=== PATIENT | female | born 1960 | race Caucasian/White ===

== ENCOUNTER 2021-05-10 13:50 | Inpatient (IN) | payer MEDICAID ==
[~2021-05-10] VITALS: Ht 165.1 cm; Wt 67.0 kg
--- NOTE | 2021-05-10 14:43 | NUR ---
Spoke to Dr. Hylton regarding patients hypotension. Dr. Hylton stated to place verbal order for 1L NS bolus once now. Dr. Hylton aware that ACS protocol has been initiated for patient. No further orders at this time.
[2021-05-10] MEDS ORDERED: normal saline 1000ml 1,000 ML IVB ONE ×2 (14:45→15:05)
[2021-05-10 14:47] LABS: BASOPHILS % (AUTO) 0.1 % (0-1); EOSINOPHILS # (AUTO) 0.1 X10'3 (0-0.9); EOSINOPHILS % (AUTO) 0.4 % (0-6); HEMATOCRIT 33.2 % (35.0-45.0); HEMOGLOBIN 11.3 g/dl (12.0-16.0); LYMPHOCYTES % (AUTO) 4.7 % (21-51); MEAN CORPUSCULAR HEMOGLOBIN 31.9 PG (27.0-31.0); MEAN CORPUSCULAR VOLUME 93.7 FL (78-98); MEAN PLATELET VOLUME 7.8 FL (7.4-10.4); MONOCYTES # (AUTO) 1.7 X10'3 (0-0.9); NEUTROPHILS # (AUTO) 18.4 X10'3 (1.8-7.7); NEUTROPHILS % (AUTO) 86.8 % (42-75); PLATELET COUNT 276 X10'3 (140-440); RED BLOOD COUNT 3.55 X10'6 (4.20-5.60); RED CELL DISTRIBUTION WIDTH 13.9 % (11.5-14.5); WHITE BLOOD COUNT 21.1 X10'3 (4.5-11.0)
[2021-05-10 15:10] LABS: ALANINE AMINOTRANSFERASE 13 U/L (12-78); ALBUMIN 3.5 G/DL (3.4-5.0); ALBUMIN/GLOBULIN RATIO 1.1 (1.1-1.5); ALKALINE PHOSPHATASE 77 IU/L (46-116); ANION GAP 9 (8-16); ASPARTATE AMINO TRANSFERASE 16 U/L (10-37); BILIRUBIN,TOTAL 0.6 MG/DL (0.1-1.0); BLOOD UREA NITROGEN 12 MG/DL (7-18); BUN/CREATININE RATIO 8.6 (6.6-38.0); CALCIUM 8.7 MG/DL (8.5-10.1); CHLORIDE 97 MMOL/L (99-107); CREATININE 1.39 MG/DL (0.40-0.90); GLUCOSE 123 MG/DL (70-104); POTASSIUM 3.9 MMOL/L (3.5-5.1); SODIUM 131 MMOL/L (135-145); TOTAL CARBON DIOXIDE 24.8 MMOL/L (24-32); TOTAL PROTEIN 6.7 G/DL (6.4-8.2); eGFR 39 ML/MIN
[2021-05-10] MEDS ORDERED: vancomycin/NS 1 GM ADD-VANTAGE 250 ML IV ONE (15:20)
[2021-05-10] MEDS ORDERED: acetaminophen 325mg tablet PO ONE (15:35)
--- NOTE | 2021-05-10 15:40 | NUR ---
Pt ambulated 50 feet unassisted and then stopped abruptly and stated she needed to sit down. Pt was escorted to bathroom in wheelchair. Pt was steady on feet and able to use restroom safely without any assistance.
[2021-05-10 15:54] LABS: PLATELET ESTIMATE NORMAL; TOTAL CELLS COUNTED 100; TOXIC GRANULATION 1+
[2021-05-10 16:09] LABS: CLARITY,URINE SLIGHTLY CLOUDY (Clear); COLOR,URINE YELLOW (Yellow); GLUCOSE, URINE NEGATIVE (Neg); KETONES,URINE NEGATIVE (Neg); LEUKOCYTE ESTERASE ,URINE TRACE (Neg); NITRITES, URINE NEGATIVE (Neg); OCCULT BLOOD,URINE NEGATIVE (Neg); PH,URINE 6.5 (4.8-8.0); PROTEIN,URINE NEGATIVE (Neg)
[2021-05-10 16:14] LABS: UA COLLECTION TYPE CLN CATCH MIDSTREAM
[2021-05-10 16:15] LABS: RBC,URINE 0-2 /HPF (0-2)
[2021-05-10 16:16] LABS: BACTERIA,URINE FEW /HPF (Neg); MUCUS STRANDS FEW /LPF (Neg); SQUAMOUS EPITHELIAL CELL,UR MODERATE /LPF (FEW)
[2021-05-10 16:25] LABS: URINE AMPHETAMINE SCREEN NEGATIVE (Neg); URINE BARBITUATE SCREEN NEGATIVE (Neg); URINE BENZODIAZEPINES SCREEN NEGATIVE (Neg); URINE CANNABINOID SCREEN NEGATIVE (Neg); URINE COCAINE SCREEN NEGATIVE (Neg); URINE METHADONE SCREEN NEGATIVE (Neg); URINE OPIATE SCREEN NEGATIVE (Neg); URINE PHENCYCLIDINE SCREEN NEGATIVE (Neg)
--- NOTE | 2021-05-10 16:54 | NUR ---
escorted to bathroom, taken back to bed, connected to monitor.
[2021-05-10] MEDS ORDERED: morphine 4 MG/ML inj SYRINge IV ONE (19:10)
[2021-05-10] MEDS ORDERED: ondansetron/PF 4mg/2ml inj IV ONE (19:10)
--- NOTE | 2021-05-10 19:13 | NUR ---
Hospitalist at bedside assessing pt. Warner notified about pt requesting pain medication and confirmed that new orders will be put in.
[2021-05-10] MEDS ORDERED: potassium CL 10mEq/100ml bag 100 ML IV PRN (19:20)
[2021-05-10] MEDS ORDERED: magnesium Cl slow-release 64mg tablet PO PRN (19:20)
[2021-05-10] MEDS ORDERED: magnesium 4gm in 100ml NS 100 ML IV PRN (19:20)
[2021-05-10] MEDS ORDERED: magnesium 2GM in 50ml NS 50 ML IV PRN (19:20)
[2021-05-10] MEDS ORDERED: magnesium hydroxide 30ml (MOM) UD suspension PO PRN (19:20)
[2021-05-10] MEDS ORDERED: mag hydrox/Alum hydrox/simeth 30ml oral suspension PO PRN (19:20)
[2021-05-10] MEDS ORDERED: acetaminophen 325mg tablet PO PRN (19:20)
[2021-05-10] MEDS ORDERED: potassium Cl 20 mEq SR tablet PO PRN ×2 (19:20)
[2021-05-10] MEDS ORDERED: morphine 2 MG/ML inj. syringe IV PRN ×2 (19:20)
[2021-05-10] MEDS ORDERED: ondansetron/PF 4mg/2ml inj IV PRN (19:20)
[2021-05-10] MEDS ORDERED: cefTRIAXone 1g/NS 100ml IVPB 100 ML IV ONE (19:25)
[2021-05-10] MEDS: normal saline 1000ml 1,000 ML IV SCH (19:37)
[2021-05-10 19:45] LABS: MAGNESIUM 1.8 MG/DL (1.5-2.4); POTASSIUM 3.7 MMOL/L (3.5-5.1)
[2021-05-10] MEDS ORDERED: vancomycin/NS 1 GM ADD-VANTAGE 250 ML IV SCH (20:00)
[2021-05-10] MEDS: K and/or MAG REPLACEMENT MC SCH (20:00)
[2021-05-10] MEDS: docusate sod 100mg capsule PO SCH (20:00)
[2021-05-10] MEDS ORDERED: CITA10TA22 PO (21:17)
[2021-05-10] MEDS ORDERED: LISI10TA27 PO (21:17)
[2021-05-10] MEDS ORDERED: DESM0.2T31 PO (21:17)
[2021-05-10] MEDS ORDERED: LORA10TA7 PO (21:17)
[2021-05-10] MEDS ORDERED: UMEC62.5 INH (21:17)
[2021-05-10] MEDS ORDERED: TRAZ-251 PO (21:17)
[2021-05-10] MEDS ORDERED: BUDE10.26 PO (21:17)
[2021-05-10] MEDS ORDERED: OMEP20CA16 PO (21:17)
[2021-05-10] MEDS ORDERED: ACET-75 PO (21:17)
[2021-05-10] MEDS ORDERED: AMLO5TAB16 PO (21:17)
[2021-05-10] MEDS ORDERED: ALBU17AE26 INH (21:17)
[2021-05-10] MEDS ORDERED: GABA600T13 PO (21:17)
[2021-05-10] MEDS ORDERED: SOLI10TA7 PO (21:17)
[2021-05-10] MEDS ORDERED: CHOL500050 PO (21:17)
[2021-05-10] MEDS ORDERED: ROPI1TAB6 PO (21:17)
[2021-05-10] MEDS ORDERED: ATOR20TA66 PO (21:17)
[2021-05-10 21:30] VITALS: BP 122/64
[2021-05-10] MEDS: heparin, porcine 5000 units/ml vial SQ SCH (21:35)
[2021-05-10] MEDS ORDERED: OMEP40CA21 PO (23:19)
[2021-05-10] MEDS ORDERED: ROPINIRole 1mg tablet PO SCH (23:35)
[2021-05-10] MEDS ORDERED: albuterol 2.5 MG/3 ML nebule NEB PRN (23:45)
[2021-05-11] VITALS: BP 144/76
[2021-05-11] MEDS ORDERED: oxybutynin 5mg tablet PO ONE (00:05)
[2021-05-11] MEDS ORDERED: traZODone 50mg tablet PO ONE (00:05)
--- NOTE | 2021-05-11 02:18 | NUR ---
Assumed care of patient at this time, did not receive report since pt's nurse went home sick.
[2021-05-11] MEDS ORDERED: HYDROmorphone inj. 0.5 MG/0.5 ML DISP.SYRIN IV ONE (04:40)
[2021-05-11 06:03] LABS: BASOPHILS # (AUTO) 0.1 X10'3 (0-0.2); BASOPHILS % (AUTO) 0.4 % (0-1); EOSINOPHILS # (AUTO) 0.3 X10'3 (0-0.9); EOSINOPHILS % (AUTO) 2.8 % (0-6); HEMATOCRIT 31.8 % (35.0-45.0); HEMOGLOBIN 10.8 g/dl (12.0-16.0); LYMPHOCYTES # (AUTO) 0.5 X10'3 (1.1-4.8); LYMPHOCYTES % (AUTO) 4.5 % (21-51); MEAN CORPUSCULAR HEMOGLOBIN 31.8 PG (27.0-31.0); MEAN CORPUSCULAR HGB CONC 33.8 g/dL (33.0-36.5); MEAN PLATELET VOLUME 8.3 FL (7.4-10.4); MONOCYTES # (AUTO) 0.9 X10'3 (0-0.9); MONOCYTES % (AUTO) 7.2 % (2-12); NEUTROPHILS # (AUTO) 10.2 X10'3 (1.8-7.7); NEUTROPHILS % (AUTO) 85.1 % (42-75); PLATELET COUNT 277 X10'3 (140-440); RED BLOOD COUNT 3.38 X10'6 (4.20-5.60); RED CELL DISTRIBUTION WIDTH 14.3 % (11.5-14.5)
[2021-05-11 06:16] LABS: ALANINE AMINOTRANSFERASE 14 U/L (12-78); ALBUMIN/GLOBULIN RATIO 0.9 (1.1-1.5); ALKALINE PHOSPHATASE 84 IU/L (46-116); ANION GAP 9 (8-16); ASPARTATE AMINO TRANSFERASE 14 U/L (10-37); BILIRUBIN,TOTAL 0.3 MG/DL (0.1-1.0); BLOOD UREA NITROGEN 8 MG/DL (7-18); BUN/CREATININE RATIO 9.5 (6.6-38.0); CALCIUM 9.1 MG/DL (8.5-10.1); CHLORIDE 104 MMOL/L (99-107); CREATININE 0.84 MG/DL (0.40-0.90); GLUCOSE 97 MG/DL (70-104); POTASSIUM 3.9 MMOL/L (3.5-5.1); SODIUM 140 MMOL/L (135-145); TOTAL CARBON DIOXIDE 26.9 MMOL/L (24-32); TOTAL PROTEIN 6.3 G/DL (6.4-8.2); eGFR 70 ML/MIN
--- NOTE | 2021-05-11 06:28 | NUR ---
Problems reprioritized. Patient report given, questions answered & plan of care reviewed with Andrzej RN.
--- NOTE | 2021-05-11 06:30 | NUR ---
Patient in room [facility]. I have received report from LORENZO MCINTYRE and had the opportunity to ask questions and assume patient care.
[2021-05-11 07:54] VITALS: BP 123/73
[2021-05-11] MEDS: K and/or MAG REPLACEMENT MC SCH ×2 (08:00→20:00)
[2021-05-11] MEDS ORDERED: pantoprazole 40mg Tablet.DR PO SCH ×2 (08:00→09:54)
[2021-05-11] MEDS: vancomycin/NS 1 GM ADD-VANTAGE 250 ML IV SCH ×2 (09:17→21:48)
[2021-05-11] MEDS: normal saline 1000ml 1,000 ML IV SCH ×2 (09:17→15:20)
[2021-05-11] MEDS: atorvastatin 20mg tablet PO SCH (09:20)
[2021-05-11] MEDS: oxybutynin 5mg tablet PO SCH ×2 (09:23→20:34)
[2021-05-11] MEDS: amLODIPine 5mg tablet PO SCH (09:23)
[2021-05-11] MEDS: ipratropium 0.5 MG/2.5ML nebule IH SCH ×3 (09:23→20:31)
[2021-05-11] MEDS: loratadine 10mg tablet PO SCH (09:24)
[2021-05-11] MEDS: gabapentin 300mg capsule PO SCH ×3 (09:24→20:34)
[2021-05-11] MEDS: docusate sod 100mg capsule PO SCH ×3 (09:25→20:34)
[2021-05-11] MEDS: lisinopril 10 MG tablet PO SCH (09:25)
[2021-05-11] MEDS: acetaminophen 325mg tablet PO SCH ×4 (09:27→21:00)
[2021-05-11] MEDS: heparin, porcine 5000 units/ml vial SQ SCH ×2 (09:28→20:33)
[2021-05-11] MEDS: HYDROmorphone inj. 0.5 MG/0.5 ML DISP.SYRIN IV PRN ×2 (09:37→17:49)
[2021-05-11] MEDS: pantoprazole 40mg Tablet.DR PO SCH (10:20)
[2021-05-11 12:58] VITALS: BP 129/74
[2021-05-11] MEDS ORDERED: ROPINIRole 1mg tablet PO SCH (16:30)
--- NOTE | 2021-05-11 17:58 | NUR ---
PAGER ID: [phone] MESSAGE: ALLYSSA SURG [id number] RE: [id number] ALEX, PATIENT IS WONDERING IF THE PACKING IN THE WOUND SHOULD STAY IN BECAUSE IT SHOULD HAVE BEEN OUT TODAY. THANK ALLYSSA
--- NOTE | 2021-05-11 18:39 | NUR ---
Problems reprioritized. Patient report given, questions answered & plan of care reviewed with CALLUM MCINTYRE.
[2021-05-11 19:00] VITALS: BP 122/65
--- NOTE | 2021-05-11 19:10 | NUR ---
Patient in room [facility]. I have received report from Judith MCINTYRE and had the opportunity to ask questions and assume patient care. Addendum: 05/11/21 at 1940 by Ju Romero RN Amended: Links added.
[2021-05-11] MEDS ORDERED: cefTRIAXone 1g/NS 100ml IVPB 100 ML IV SCH ×2 (20:00)
[2021-05-11] MEDS ORDERED: DESMOPRESSIN ACETATE 0.1 MG TABLET PO SCH (21:00)
[2021-05-11] MEDS ORDERED: traZODone 50mg tablet PO SCH (21:00)
[2021-05-11] MEDS ORDERED: DESMOPRESSIN ACETATE 0.2 MG TABLET PO SCH (21:00)
--- NOTE | 2021-05-11 21:00 | NUR ---
Went to remove left labial packing per MD order. no packing to remove. pt stated "the tail of the packing is no longer there" asked pt if it could have been accidentally removed using the restroom and wiping. pt stated "im not sure, maybe." will continue to monitor. redness marked and wound care picture taken.
--- NOTE | 2021-05-11 21:37 | NUR ---
C/o nausea without emesis. Medicated effective. Addendum: 05/12/21 at 0136 by Ju Romero RN Amended: Links added.
--- NOTE | 2021-05-11 22:00 | NUR ---
Resource nurse attempted to unpack the wound dressing as ordered bur could not visually see the packing as indicated. Pt's incision site was land marked to monitor any increase in size- surrounding skin around the incision with redness noted Pt's incision site was land marked to monitor any increase in redness and swelling. Addendum: 05/12/21 at 3126 by Ju Romero RN Amended: Links added.
[2021-05-12] VITALS: BP 107/59
[2021-05-12] MEDS: ipratropium 0.5 MG/2.5ML nebule IH SCH ×2 (02:25→08:02)
[2021-05-12] MEDS: HYDROmorphone inj. 0.5 MG/0.5 ML DISP.SYRIN IV PRN ×3 (02:55→12:43)
[2021-05-12] MEDS: normal saline 1000ml 1,000 ML IV SCH ×2 (02:56→11:20)
--- NOTE | 2021-05-12 06:10 | NUR ---
Report given to on coming nurse regarding the wound packing status. Addendum: 05/12/21 at 1217 by Ju Romero RN Amended: Links added.
--- NOTE | 2021-05-12 06:15 | NUR ---
Problems reprioritized. Patient report given, questions answered & plan of care reviewed with Andrzej MCINTYRE. Addendum: 05/12/21 at 0704 by Ju Romero RN Amended: Links added.
--- NOTE | 2021-05-12 06:54 | NUR ---
Patient in room [facility]. I have received report from Ju MCINTYRE and had the opportunity to ask questions and assume patient care.
[2021-05-12 07:30] VITALS: BP 149/84
[2021-05-12] MEDS ORDERED: VANCOMYCIN LEVEL IV ONE (07:30)
[2021-05-12] MEDS: K and/or MAG REPLACEMENT MC SCH (08:00)
[2021-05-12] MEDS: heparin, porcine 5000 units/ml vial SQ SCH (08:00)
[2021-05-12] MEDS: docusate sod 100mg capsule PO SCH (08:00)
[2021-05-12 09:00] LABS: BASOPHILS % (AUTO) 0.6 % (0-1); EOSINOPHILS # (AUTO) 0.5 X10'3 (0-0.9); EOSINOPHILS % (AUTO) 6.3 % (0-6); HEMATOCRIT 30.2 % (35.0-45.0); HEMOGLOBIN 10.2 g/dl (12.0-16.0); LYMPHOCYTES # (AUTO) 1.6 X10'3 (1.1-4.8); LYMPHOCYTES % (AUTO) 20.5 % (21-51); MEAN CORPUSCULAR HEMOGLOBIN 31.6 PG (27.0-31.0); MEAN CORPUSCULAR HGB CONC 33.7 g/dL (33.0-36.5); MEAN CORPUSCULAR VOLUME 93.7 FL (78-98); MEAN PLATELET VOLUME 8.1 FL (7.4-10.4); MONOCYTES # (AUTO) 0.9 X10'3 (0-0.9); MONOCYTES % (AUTO) 11.2 % (2-12); NEUTROPHILS # (AUTO) 4.7 X10'3 (1.8-7.7); NEUTROPHILS % (AUTO) 61.4 % (42-75); PLATELET COUNT 277 X10'3 (140-440); RED BLOOD COUNT 3.22 X10'6 (4.20-5.60); RED CELL DISTRIBUTION WIDTH 14.1 % (11.5-14.5); WHITE BLOOD COUNT 7.6 X10'3 (4.5-11.0)
[2021-05-12 09:07] LABS: ALANINE AMINOTRANSFERASE 14 U/L (12-78); ALBUMIN 2.9 G/DL (3.4-5.0); ALBUMIN/GLOBULIN RATIO 0.9 (1.1-1.5); ALKALINE PHOSPHATASE 76 IU/L (46-116); ANION GAP 8 (8-16); ASPARTATE AMINO TRANSFERASE 18 U/L (10-37); BILIRUBIN,TOTAL 0.2 MG/DL (0.1-1.0); BLOOD UREA NITROGEN 7 MG/DL (7-18); BUN/CREATININE RATIO 11.5 (6.6-38.0); CALCIUM 8.4 MG/DL (8.5-10.1); CHLORIDE 102 MMOL/L (99-107); CREATININE 0.61 MG/DL (0.40-0.90); GLUCOSE 88 MG/DL (70-104); MAGNESIUM 1.8 MG/DL (1.5-2.4); POTASSIUM 3.7 MMOL/L (3.5-5.1); SODIUM 138 MMOL/L (135-145); TOTAL CARBON DIOXIDE 28.4 MMOL/L (24-32); TOTAL PROTEIN 6.2 G/DL (6.4-8.2); VANCOMYCIN,TROUGH 14.1 UG/ML (6.0-14.0); eGFR > 90 ML/MIN
[2021-05-12] MEDS: acetaminophen 325mg tablet PO SCH ×2 (09:30→13:00)
[2021-05-12] MEDS: lisinopril 10 MG tablet PO SCH (09:31)
[2021-05-12] MEDS: oxybutynin 5mg tablet PO SCH (09:32)
[2021-05-12] MEDS: loratadine 10mg tablet PO SCH (09:32)
[2021-05-12 09:33] VITALS: BP_SYST 149
[2021-05-12] MEDS: atorvastatin 20mg tablet PO SCH (09:33)
[2021-05-12] MEDS: amLODIPine 5mg tablet PO SCH (09:33)
[2021-05-12] MEDS: pantoprazole 40mg Tablet.DR PO SCH (09:33)
[2021-05-12] MEDS: gabapentin 300mg capsule PO SCH ×2 (09:34→13:00)
[2021-05-12] MEDS ORDERED: VANCOmycin 1250MG/NS 250ml Bag 250 ML IV SCH (10:00)
--- NOTE | 2021-05-12 13:29 | NUR ---
ALLYSSA SURG 1203 RE: Jassi MCCAIN PATIENT FAMILY IS IN ROOM AND WOULD LIKE TO SPEAK WITH ABOUT THE PATIENT CARE. THANKS ALLYSSA. Addendum: 05/12/21 at 1329 by Melvin Barriga RN INCORRECT PATIENT
--- NOTE | 2021-05-12 14:51 | NUR ---
PATIENT DISCHARGED AND IS PLANNING ON GOING TO [facility] FOR TREATMENT. NO NEW MEDICATIONS, PATIENT LEFT WITH ALL BELONGINGS AT DISCHARGE AND WAS PICKED UP BY FAMILY IN PRIVATE VEHICLE.
[2021-05-13] MEDS ORDERED: VANCOMYCIN LEVEL IV ONE (21:30)
== END 2021-05-12 13:55 | disposition home or self-care (01) | DRG 531 ==
LOC: ER 13:51 → ED HOLD 19:21 → SUR 3N 20:25
PROVIDERS: ADMIT Internal Medicine; ATTEND Internal Medicine
DX: N76.2 Acute vulvitis (principal); L02.215 Cutaneous abscess of perineum; N76.0 Acute vaginitis; I10 Essential (primary) hypertension; G47.00 Insomnia, unspecified; E78.5 Hyperlipidemia, unspecified; N76.4 Abscess of vulva; Z79.899 Other long term (current) drug therapy; Z87.410 Personal history of cervical dysplasia; Z88.0 Allergy status to penicillin
CPT/HCPCS: 36415; 71045; 74176; 80053; 80202; 80305; 81001; 83605; 83735; 83880; 84132; 84145; 84484; 85007; 85025; 87040; 87070; 87075; 87081; 87088; 94640; 94664; 94760; 96361; 96365; 96375; 99285; G0378; J0696; J1170; J1644; J2270; J2405; J3370; J7030

== ENCOUNTER 2023-08-18 11:22 | Outpatient (CLI) | payer MEDICAID ==
[~2023-08-18 11:22] MED LIST: ACET-75 PO; ALBU17AE26 INH; AMLO5TAB16 PO; ATOR20TA66 PO; BUDE10.26 PO; CHOL500050 PO; CITA10TA22 PO; DESM0.2T31 PO; GABA600T13 PO; LISI10TA27 PO; LORA10TA7 PO; OMEP40CA21 PO; ROPI1TAB47 PO; SOLI10TA7 PO; TRAZ-251 PO; UMEC62.5 INH
== END 2023-08-18 23:59 | disposition home or self-care (01) ==
LOC: RAD 11:22
PROVIDERS: ATTEND Family Medicine
DX: Z12.2 Encounter for screening for malignant neoplasm of respiratory organs (principal); F17.210 Nicotine dependence, cigarettes, uncomplicated; J43.9 Emphysema, unspecified
CPT/HCPCS: 71271

== ENCOUNTER 2024-09-15 17:51 | Emergency (ER) | payer MEDICAID ==
[~2024-09-15] VITALS: Ht 165.1 cm; Wt 68.8 kg
[~2024-09-15 17:51] MED LIST changes: +GABA-1405 PO; -GABA600T13 PO
[2024-09-15 18:03] VITALS: BP 131/74; PULSE 84; TEMP 98.2; O2SAT 98
--- NOTE | 2024-09-15 19:45 | Physician Documentation ---
History of Present Illness ~ Chief Complaint: Mechanical Fall Stated Complaint: FALL, HAND PAIN Time Seen by MD: 18:23 Primary Medical Doctor: Miguel LAW 64-year-old female presents to the ED with a complaint of left hand pain after falling earlier today. She states that she used her left hand to brace her when she fell. Now she complains of swelling and pain with range of motion. States she did hit her head but only brushed the side of her head and no blunt trauma.. Denies any blood thinner prescribed Day of Fall: Sep 15, 2024 Tetanus within 5 Years?: Yes (2023) Medication Reconciliation Allergies: Coded Allergies: penicillin V (Verified Allergy, Unknown, 05/10/21) Scheduled Acetaminophen (Acetaminophen), 1 TAB PO QID, (Reported) Amlodipine Besylate (Amlodipine Besylate), 1 TAB PO DAILY, (Reported) Atorvastatin Calcium (Atorvastatin Calcium), 1 TAB PO DAILY, (Reported) Budesonide/Formoterol Fumarate (Budesonide-Formoterol 160-4.5), 2 PUFFS PO BID, (Reported) Cholecalciferol (Vitamin D3) (Vitamin D3), 1 CAP PO DAILY, (Reported) Citalopram Hydrobromide (Citalopram Hbr), 1 TAB PO DAILY, (Reported) Desmopressin Acetate (Desmopressin Acetate), 1 TAB PO HS, (Reported) Gabapentin (Gabapentin), 1 TAB PO TID, (Reported) Lisinopril (Lisinopril), 1 TAB PO DAILY, (Reported) Loratadine (Loratadine), 1 TAB PO DAILY, (Reported) Omeprazole (Prilosec), 10 MG PO BID, (Reported) Ropinirole Hcl (Ropinirole Hcl), 4 TAB PO DAILY, (Reported) Solifenacin Succinate (Solifenacin Succinate), 1 TAB PO DAILY, (Reported) Trazodone HCl (Trazodone HCl), 1 TAB PO HS, (Reported) Umeclidinium [place] (Incruse Ellipta), 1 PUFFS INH DAILY, (Reported) Scheduled PRN Albuterol (Albuterol), 2 PUFFS INH Q2H PRN for SOB or wheezing, (Reported) Hydrocodone Bit/Acetaminophen 5/325 MG ([place] 5/325 MG), 1 TAB PO Q6H PRN for pain Past Medical History Past Medical History: No Pertinent History Past Surgical History: noncontributory Lives In: Home Occupation: employed Review of Systems All Other Systems at this time: Reviewed and Negative ROS As stated above in the HPI, otherwise all systems are reviewed and negative. Physical Exam Vital Signs: Temperature: 98.2, Source: Temporal, Heart Rate: 84, Respiratory Rate: 17, BP: 131/74, Pulse Oximetry: 98, Weight: 68.850 Physical Exam Head: Mild abrasion on the left side of cheek general; no acute distress Respiratory: Lungs clear, no respiratory distress. Extremities: Left hand notable for gross swelling on the posterior aspect no crepitus, pain with range of motion Neurologic: Oriented x4. Psychiatric: Normal mood and affect. Skin: Normal color, warm and dry. No edema, no ecchymosis. Progress Results/Orders Results/Orders Orders - KEVIN ARIZA REHABILITATION CONSULTANT Hand, Complete (3vw Min) (09/15/24 18:55) Ortho Orders (09/15/24 ) Hand, Complete (3vw Min) (09/15/24 20:05) Completed Orders - KEVIN ARIZA REHABILITATION CONSULTANT Hand, Complete (3vw Min) (09/15/24 18:55) Hand, Complete (3vw Min) (09/15/24 20:05) Hydrocodone/Apap 10/325 ([place] 10/325mg (09/15/24 20:20) Medications Received in ER Medications (Trade) Dose Ordered Sig/Reynold Route PRN Reason Start Time Stop Time Status Last Admin Dose Admin ([place] 10/325mg tab) 1 tab ONCE ONCE PO 09/15/24 20:20 09/15/24 20:21 DC 09/15/24 20:24 1 TAB Vital Signs 09/15/24 09/15/24 18:03 20:24 Temp 98.2 Pulse 84 Resp 17 16 B/P (MAP) 131/74 Pulse Ox 98 Medical Decision Making Findings 64-year-old female had multiple fractures on her left hand. Third 4th and 5th metacarpal necks nondisplaced fractures. Splinted up the patient made sure that CSM is intact. Explained to take medication as prescribed and follow up with primary care Differential Dx:Considerations: Include: Closed head injury, Cardiac injury, Fracture(s), Intraabdominal injury, Pneumothorax, Cerebral contusion, Pulmonary contusion, Spine injury, Tracheal injury, Urological injury, Vascular injury, Abrasion(s), Contusion(s), Foreign body(s), Hematoma(s), Laceration(s), Encephalopathy, Other Departure Disposition: 01 HOME / SELF CARE / HOMELESS Impression: Primary Impression: Fall Additional Impression: Fracture of finger of left hand Condition: Stable Discharge Instructions: Fall Prevention in the Home, Adult, [id number] Additional Instructions: You have fractures on your 3rd 4th and 5th fingers on the left side.. These can take 4-6 weeks to fully heal. You may need further evaluation by an orthopedic surgeon. You can get a referral from your primary care. Referrals: NO PRIMARY CARE PROVIDER (PCP) Prescriptions Hydrocodone Bit/Acetaminophen 5/325 MG ([place] 5/325 MG) 5 Mg/325 Mg Tablet 1 TAB PO Q6H PRN for pain, #14 TAB Prov: KEVIN ARIZA NP 09/15/24 Education Educated: Patient Educated regarding: diagnosis Signature Scribe Signature: c Attestation: Scribed for Kevin Ariza Planning Assistant by Kevin Ariza - RAMY . 09/15/24 20:51 KEVIN ARIZA NP Sep 15, 2024 19:45
--- NOTE | 2024-09-15 19:59 | RADIOLOGY REPORT ---
EXAMINATIONS: 3 views of the left hand CLINICAL HISTORY: fall LEFT COMPARISON: None Findings and impression: Rings on the 3rd and 4th digits obscure evaluation. There are mildly displaced and angulated fractures of the metadiaphyses of the 3rd, 4th and 5th dista l metacarpals.
[2024-09-15 20:24] VITALS: RESP 16
[2024-09-15] MEDS: HYDROcodone/acetaminophen 10/325mg tab PO ONE (20:24)
--- NOTE | 2024-09-15 20:25 | RADIOLOGY REPORT ---
CLINICAL INDICATION: fall LEFT, REPEAT S/P RINGS CUT OFF TECHNIQUE: 3 views DI HAND, COMPLETE (3VW MIN) Comparison: DI HAND, COMPLETE (3VW MIN) on DOS: 09/15/24 FINDINGS/IMPRESSION: : Status post removal of metallic rings on the 3rd and 4th digits. Multiple retained metallic fragments are likely superficial and related to removal. Redemonstrated mildly angulated fractures of the 3rd-5th metacarpal necks. Additional fracture defor mities of the scaphoid waist and distal ulna appear remodeled and may be subacute or chronic, correla te with history and physical exam. Large soft tissue swelling. No additional identified fracture.
[2024-09-15] MEDS ORDERED: HYDR-3965 PO (21:04)
== END 2024-09-15 21:17 | disposition home or self-care (01) ==
LOC: ER 17:52
DX: S62.639A Displaced fracture of distal phalanx of unspecified finger, initial encounter for closed fracture (principal); X58.XXXA Exposure to other specified factors, initial encounter; Y93.89 Activity, other specified; Y92.89 Other specified places as the place of occurrence of the external cause; Y99.8 Other external cause status
CPT/HCPCS: 29125; 73130; 99284; A4565; A6449

== ENCOUNTER 2025-01-18 10:59 | Outpatient (CLI) | payer MEDICAID ==
--- NOTE | 2025-01-18 11:57 | RADIOLOGY REPORT ---
CLINICAL INDICATION: CT LEFT WRIST WO CONTRAST TECHNIQUE: Noncontrast CT of the left wrist was performed. Sagittal and coronal reformatted images are provided. COMPARISON: None CT Dose: CTDI volume is 14.4 mGy. Dose-length product is 70.9 mGy*cm FINDINGS: There is a fracture through the waist of the scaphoid. There are cysts on both sides of the fracture plane and there is no bridging callus formation across the fracture. On the coronal images, there is a linear lucency through the volar surface of the distal pole of the scaphoid (series 601, image 16). Widening of the scapholunate interval is present measuring 5 mm. Dorsal tilt of the lunate. There is severe triscaphe joint space narrowing with abnormal contact of the scaphoid on the trapezium and the trapezoid. There is an osteophyte adjacent to the proximal 1st metacarpal. 1st carpometacarpal joint space narrowing is also present. Severe distal radioulnar joint space narrowing with subchondral cysts. Distal radioulnar joint effusion is noted. Soft tissues are unremarkable. IMPRESSION: 1. Nonunited fracture through the waist of the scaphoid. Findings suspicious for Possible additional nondisplaced fracture through the distal pole of the scaphoid. 2. 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 3. Distal radioulnar joint effusion. All CT scans at this medical facility are performed using dose modulation techniques as appropriate to a performed exam including the following: Automated exposure control was utilized; adjustment of the MA and/or KV according to patient size; and use of iterative reconstruction technique.
== END 2025-01-18 23:59 | disposition home or self-care (01) ==
LOC: RAD 10:59
PROVIDERS: ATTEND Pediatrics Sports Medicine
DX: S62.012K Displaced fracture of distal pole of navicular [scaphoid] bone of left wrist, subsequent encounter for fracture with nonunion (principal); M79.642 Pain in left hand; S62.363D Nondisplaced fracture of neck of third metacarpal bone, left hand, subsequent encounter for fracture with routine healing; M19.032 Primary osteoarthritis, left wrist; S62.365D Nondisplaced fracture of neck of fourth metacarpal bone, left hand, subsequent encounter for fracture with routine healing; S62.025D Nondisplaced fracture of middle third of navicular [scaphoid] bone of left wrist, subsequent encounter for fracture with routine healing; S62.367D Nondisplaced fracture of neck of fifth metacarpal bone, left hand, subsequent encounter for fracture with routine healing; M18.12 Unilateral primary osteoarthritis of first carpometacarpal joint, left hand; X58.XXXD Exposure to other specified factors, subsequent encounter
CPT/HCPCS: 73200

== ENCOUNTER 2025-02-01 12:31 | Outpatient (CLI) | payer MEDICAID ==
--- NOTE | 2025-02-01 14:32 | RADIOLOGY REPORT ---
EXAM: CT CT LOWER EXTREMITY INDICATION: PAIN IN RIGHT KNEE TECHNIQUE: Axial images of right knee without contrast have been obtained along with coronal and sagittal reformatted images. All CT scans at this facility use dose modulation, iterative reconstruction, and/or weight based dosing when appropriate to reduce radiation dose to as low as reasonably achievable. COMPARISON: None FINDINGS: BONES: Sagittally oriented proximal tibial meta epiphyseal fracture with superior extension through the tibial spines primarily involving the medial tibial spine. No significant tibial plateau height loss. No proximal fibular fracture. MUSCLES:No abnormal attenuation. JOINT SPACES:Chondrocalcinosis of the medial and lateral menisci. Small to medium Tidwell's cyst. TENDONS/LIGAMENTS:Small amount of soft tissue calcification along the distal patellar tendon of the tibial tubercle insertion. OTHER:None. IMPRESSION: 1. Sagittally oriented proximal tibial meta epiphyseal fracture with superior extension through the tibial spines primarily involving the medial tibial spine. 2. No significant tibial plateau height loss. 3. Small to medium Bakers cyst.
== END 2025-02-01 23:59 | disposition home or self-care (01) ==
LOC: RAD 12:31
PROVIDERS: ATTEND Family Medicine
DX: S89.091A Other physeal fracture of upper end of right tibia, initial encounter for closed fracture (principal); M25.561 Pain in right knee; M11.261 Other chondrocalcinosis, right knee; M71.21 Synovial cyst of popliteal space [Baker], right knee; X58.XXXA Exposure to other specified factors, initial encounter; Y93.89 Activity, other specified; Y92.89 Other specified places as the place of occurrence of the external cause; Y99.8 Other external cause status
CPT/HCPCS: 73700